=== PATIENT | female | born 2000 | race Caucasian/White ===

== ENCOUNTER 2019-01-08 11:50 | Emergency (ER) | payer OTHER ==
[~2019-01-08] VITALS: Ht 160 cm; Wt 79.5 kg
[2019-01-08 11:52] VITALS: Ht 160 cm; Wt 79.5 kg
[2019-01-08] MEDS ORDERED: IBUPROFEN 600 MG TAB PO ONE (12:30)
[2019-01-08] MEDS ORDERED: IBUP-1542 PO (13:43)
--- NOTE | 2019-01-08 13:49 | ERD ---
ER Documentation Chief Complaint Chief Complaint right knee and R.1st toe pain x today post fall @ work HPI 18-year-old female complains of right knee pain after trip and fall at work today. Complains of pain over the right patella and right big toe. She has no bleeding, lacerations, restricted range of motion or weakness. She has pain with ambulation. She denies other injury. ROS All systems reviewed and are negative except as per history of present illness. Medications Home Meds Active Scripts Ibuprofen* (Motrin*) 600 Mg Tab, 600 MG PO Q6, #20 TAB Prov:BORIS FIGUEROA MD 01/08/19 PMhx/Soc Medical and Surgical Hx: pt denies Medical Hx, pt denies Surgical Hx History of Surgery: No Anesthesia Reaction: No Hx Neurological Disorder: No Hx Respiratory Disorders: No Hx Cardiac Disorders: No Hx Psychiatric Problems: No Hx Miscellaneous Medical Probl: No Hx Alcohol Use: No Hx Substance Use: No Hx Tobacco Use: No Smoking Status: Never smoker FmHx Family History: No diabetes, No coronary disease, No other Physical Exam Vitals Vital Signs Date Temp Pulse Resp B/P (MAP) Pulse Ox O2 O2 Flow FiO2 Time Delivery Rate 01/08/19 98.7 93 18 114/73 99 11:52 (87) Physical Exam Const: No acute distress Head: Atraumatic Eyes: Normal Conjunctiva ENT: Normal External Ears, Nose and Mouth. Neck: Full range of motion. No meningismus. Resp: Clear to auscultation bilaterally Cardio: Regular rate and rhythm, no murmurs Abd: Soft, non tender, non distended. Normal bowel sounds Skin: No petechiae or rashes Back: No midline or flank tenderness Ext: No cyanosis, or edema. Tenderness over the right patella without significant swelling, effusion, deformities. No calf swelling or Homans sign. Mild tenderness around the right big toe without deformities, restricted range of motion or weakness. No bleeding or lacerations. Neur: Awake and alert Psych: Normal Mood and Affect Results 24 hrs Current Medications Medications Dose Sig/Gal Start Time Status Last (Trade) Ordered Route PRN Stop Time Admin Dose Reason Admin Ibuprofen 600 mg ONCE ONCE 01/08/19 DC 01/08/19 (Motrin) PO 12:30 12:20 01/08/19 12:31 Procedures/MDM 18. 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 The pain in the right patella and right big toe. 19. Objective findings- Tenderness of the right patella without swelling, deformities, effusion, warmth, erythema or bleeding. Tenderness of the right big toe without swelling, warmth, deformities, restricted range of motion weakness. 19 B. X-ray and laboratory results- X-ray right 3V patella interpreted by me: Bones: No fracture Joints: No dislocation Foreign body: None. Impression-normal right patella x-ray X-ray right first toe 2V Interpreted by me: Bones: No fracture Joints: No dislocation Foreign Body: None impression-normal right big toe x-ray 20. Diagnosis- Right knee contusion and right big toe sprain 21. Findings and diagnosis consistent with patient's account of injury and onset?- Yes 22. Conditions that will impede or delay the patient's recovery? No 23. Treatment rendered- Exam, history, x-ray, ibuprofen for pain, knee immobilizer and crutches. Further treatment required- Follow-up 3-4 days with occupational medicine clinic of employer 24. Patient hospitalized?- No 25. Work status- Able to perform usual work- No Patient can return on- January 09, 2019 Restrictions-limited walking and desk duty only until cleared by Dr. Rodriguez Diagnosis: Primary Impression: Knee injury Encounter type: initial encounter Laterality: right Qualified Codes: S89.91XA - Unspecified injury of right lower leg, initial encounter Additional Impression: Toe sprain Encounter type: initial encounter Qualified Codes: S93.509A - Unspecified sprain of unspecified toe(s), initial encounter Condition: BORIS Dodson MD Jan 08, 2019 13:49
== END 2019-01-08 14:07 | disposition home or self-care (01) ==
LOC: FTE 11:50
DX: S80.01XA Contusion of right knee, initial encounter (principal); S93.501A Unspecified sprain of right great toe, initial encounter; W01.0XXA Fall on same level from slipping, tripping and stumbling without subsequent striking against object, initial encounter; Y92.89 Other specified places as the place of occurrence of the external cause
CPT/HCPCS: 29505; 73564; 73660; Z7502; Z7610

== ENCOUNTER 2019-06-29 20:54 | Emergency (ER) | payer OTHER ==
[~2019-06-29] VITALS: Ht 160 cm; Wt 82.0 kg
[~2019-06-29 20:54] MED LIST: IBUP-1542 PO
[2019-06-29 21:04] VITALS: Ht 160 cm; Wt 82.0 kg
--- NOTE | 2019-06-29 22:49 | ERD ---
ER Documentation Chief Complaint Chief Complaint LEFT ANKLE PAIN S/P FALL. NO HEAD TRAUMA. HPI 18-year-old female from the ED for left ankle pain secondary to an injury at work. Patient works as a security project manager she was walking down some steps she slipped on the last step and rolled her left ankle. Patient caught herself did not hit her head. Patient states it is painful when she walks patient rates the pain a 7 out of 10. Patient states her only past medical history is asthma which she takes albuterol for. Patient states she has no allergies to medication. Patient states this happened around 6 PM and she has not taken any medication for this yet. ROS All systems reviewed and are negative except as per history of present illness. Medications Home Meds Active Scripts Ibuprofen* (Motrin*) 600 Mg Tab, 600 MG PO Q6, #30 TAB Prov:SAMMIE FERNANDEZ PA-C 06/29/19 Ibuprofen* (Motrin*) 600 Mg Tab, 600 MG PO Q6, #20 TAB Prov:BORIS FIGUEROA MD 01/08/19 Allergies Allergies: Coded Allergies: No Known Allergy (Unverified , 06/29/19) PMhx/Soc Medical and Surgical Hx: pt denies Medical Hx, pt denies Surgical Hx History of Surgery: No Anesthesia Reaction: No Hx Neurological Disorder: No Hx Respiratory Disorders: No Hx Cardiac Disorders: No Hx Psychiatric Problems: No Hx Miscellaneous Medical Probl: No Hx Alcohol Use: No Hx Substance Use: No Hx Tobacco Use: No Smoking Status: Never smoker FmHx Family History: No diabetes, No coronary disease, No other Physical Exam Vitals Vital Signs Date Temp Pulse Resp B/P (MAP) Pulse Ox O2 O2 Flow FiO2 Time Delivery Rate 06/29/19 97.3 79 20 114/79 100 Room Air 23:05 (91) 06/29/19 97.3 97 20 116/72 100 21:04 (87) Physical Exam GENERAL: Moderate Distress CHEST: Clear to auscultation bilaterally. There are no rales, wheezes or rhonchi. HEART: Regular rate and rhythm. No murmurs, clicks, rubs or gallops. EXTREMITIES: mild swelling and deformity to left ankle. ROM limited, pain to palpation to the lateral aspect of the left ankle.no signs of open fractures or exposure of soft tissue. No skin pallor noted. Patient has intact gross motor function and distal pulses are present and equal bilaterally. NEUROLOGIC: Motor strength is 5 out of 5 strength in left lower extremity. Sensation grossly intact. Results 24 hrs Current Medications Medications Dose Sig/Gal Start Time Status Last (Trade) Ordered Route PRN Stop Time Admin Dose Reason Admin 650 mg ONCE ONCE 06/29/19 DC 06/29/19 Acetaminophen PO 23:00 23:04 (Tylenol 06/29/19 23:01 Tab) Procedures/MDM ED course: The patient was stable throughout the ED course. The patient and/or family informed of laboratory and diagnostic imaging results throughout the ED course. Diagnostic imaging: Read by radiologist Dr. Corona PROCEDURE: XR Left Ankle CLINICAL INDICATION: Injury TECHNIQUE: Standard 3 view radiographs were submitted. COMPARISON: None FINDINGS: Osseous structures: Well mineralized and intact with no fracture or destructive process identified. Joint spaces: Well maintained with no significant erosions or spurring evident. Soft tissues: Appear unremarkable. IMPRESSION: Unremarkable left ankle. Procedures: None Medications given in ER: Acetaminophen Patient tolerated medication well with no adverse reactions. Patient reported improvement in pain. Procedure: SPLINT APPLICATION: The patient was verbally consented at bedside prior to splint application. Patient was explained the risks, benefits and alternatives to this procedure. The patient was neurovascularly intact prior to and status post application of the splint. The patient tolerated the procedure well with no complications. Splint type: Chris wrap Extremity: Left lower extremity Indication: Ankle sprain I discussed with the patient/family that at anytime if the splint becomes too constricted or if they have loss of sensation, or unable to move any limbs distal to the splint, develop fever, or any discomfort that they should eturn to the ER immdiatly. I educated the patient on risk of compartment syndrome with splint applications. Medical decision makin-year-old female presented to ED for a left foot injury secondary to a fall at work. Physical exam revealed patient has good distal pulses good motor function and good sensation in the distal aspect of the extremity. There is no bruising only mild swelling. X-ray indicated no dislocation or fracture. Patient was given acetaminophen for pain while in the ED. The patient has no pain to palpation to her left knee, left leg, left hip. Patient has full range of motion in the extremity and neurovascular exam was unremarkable. At this time I have low suspicion for fracture, dislocation, compartment syndrome, DVT. The patient was immobilized in an Chris wrap and given crutches in the ED. Patient reports improvement in comfort and pain. Advised the patient that she needs to follow-up with her primary care doctor in 1 to 2 days regarding this visit. Advised the patient if symptoms worsen return to ER immediately. Patient is agreement treatment plan all questions answered upon discharge Prescription for home: Acetaminophen I have discussed with the patient proper use and common side effects to expert with the medication . I advised the patient/family to speak with the pharmacist dispensing the medication to be advised of any potential drug inte ractions with other medication or supplements they may be taking. Discharge: At this time, patient is stable for discharge and outpatient management. I have instructed the patient to follow-up with his\her primary care physician in 1 to 2 days. I have discussed with the patient the possibility of needing to see a specialist for further work-up and imaging studies if symptoms persist. I have instructed the patient to promptly return to the ER for any new or worsening symptoms including increased pain, fever, nausea, vomiting, weakness or LOC. The patient and\or family expressed understanding of and agreement with this plan. All questions were answered. Home care instructions were provided. Disclaimer: Inadvertent spelling and grammatical errors are likely due to EHR\dictation software use and do not reflect on the overall quality of patient care. Also, please note that the electronic time recorded on the note does not necessarily reflect the actual time of the patient encounter. Departure Diagnosis: Primary Impression: High ankle sprain Encounter type: initial encounter Laterality: left Qualified Codes: S93.432A - Sprain of tibiofibular ligament of left ankle, initial encounter Condition: Stable Patient Instructions: Treating Ankle Sprains, Self-Care for Strains and Sprains Referrals: COMMUNITY CLINICS YOU HAVE RECEIVED A MEDICAL SCREENING EXAM AND THE RESULTS INDICATE THAT YOU DO NOT HAVE A CONDITION THAT REQUIRES URGENT TREATMENT IN THE EMERGENCY DEPARTMENT. FURTHER EVALUATION AND TREATMENT OF YOUR CONDITION CAN WAIT UNTIL YOU ARE SEEN IN YOUR DOCTORS OFFICE WITHIN THE NEXT 1-2 DAYS. IT IS YOUR RESPONSIBILITY TO MAKE AN APPOINTMENT FOR FOLOW-UP CARE. IF YOU HAVE A PRIMARY DOCTOR --you should call your primary doctor and schedule an appointment IF YOU DO NOT HAVE A PRIMARY DOCTOR YOU CAN CALL OUR PHYSICIAN REFERRAL HOTLINE AT IF YOU CAN NOT AFFORD TO SEE A PHYSICIAN YOU CAN CHOSE FROM THE FOLLOWING COMMUNITY CLINICS [facility] [address] [facility] [address] [facility] [address] [facility] [address] [facility] [address] [facility]. [facility] [address] [facility]. [facility] YOU HAVE RECEIVED A MEDICAL SCREENING EXAM AND THE RESULTS INDICATE THAT YOU DO NOT HAVE A CONDITION THAT REQUIRES URGENT TREATMENT IN THE EMERGENCY DEPARTMENT. FURTHER EVALUATION AND TREATMENT OF YOUR CONDITION CAN WAIT UNTIL YOU ARE SEEN IN YOUR DOCTORS OFFICE WITHIN THE NEXT 1-2 DAYS. IT IS YOUR RESPONSIBILITY TO MAKE AN APPOINTMENT FOR FOLOW-UP CARE. IF YOU HAVE A PRIMARY DOCTOR --you should call your primary doctor and schedule and appointment IF YOU DO NOT HAVE A PRIMARY DOCTOR YOU CAN CALL OUR PHYSICIAN REFERRAL HOTLINE AT . IF YOU CAN NOT AFFORD TO SEE A PHYSICIAN YOU CAN CHOSE FROM THE FOLLOWING ON LICENSE OF [facility] INSTITUTIONS: [facility] [address] [place] [address] [facility] [address] [place] [address] [facility] [address] [place] [address] [facility] Ur[facility] Care 7 a.m.- 11 p.m. Every Day of the Week NO APPOINTMENT OR AUTHORIZATION NEEDED Additional Instructions: Call your primary care doctor TOMORROW for an appointment during the next 1-2 days.See the doctor sooner or return here if your condition worsens before your appointment time. SAMMIE FERNANDEZ PA-C Jun 29, 2019 22:49
[2019-06-29] MEDS ORDERED: ACETAMINOPHEN 325 MG TAB PO ONE (23:00)
[2019-06-29 23:05] VITALS: BP 114/79; PULSE 79; RESP 20
== END 2019-06-29 23:10 | disposition home or self-care (01) ==
LOC: FTE 20:54
DX: S93.432A Sprain of tibiofibular ligament of left ankle, initial encounter (principal); W18.40XA Slipping, tripping and stumbling without falling, unspecified, initial encounter; Y92.89 Other specified places as the place of occurrence of the external cause
CPT/HCPCS: 73610; Z7502; Z7610